=== PATIENT | male | born 1935 | race Caucasian/White ===

== ENCOUNTER 2016-11-05 19:11 | Emergency (ER) | payer OTHER, BC ==
[~2016-11-05] VITALS: Ht 182.9 cm; Wt 79.5 kg
[~2016-11-05 19:11] MED LIST: ASPIRIN81 M2 PO; ATORVASTATIN CA80 MG PO; CARDURA4 MG PO; CARVEDILOL12.5 MG PO; COUMADIN1 MG PO; FOSRENOL500 MG PO; LASIX80 MG PO; LISINOPRIL10 MG PO; PROSCAR5 MG PO; SENSIPAR30 MG PO; TAMSULOSIN HCL0.4 MG PO
[2016-11-05 19:42] LABS: MCH 33.2 PG (29.0-34.0); MCHC 32.6 G/DL (30.0-36.0); MEAN PLAT.VOLUME 10.5 uM^3 (9.0-12.4); PLATELET COUNT 171 K/uL (156-360); RBC DIS.WIDTH-CV 14.3 % (11.8-14.6); RBC DIS.WIDTH-SD 53.5 % (39-53); RED BLOOD COUNT 3.43 M/uL (4.00-5.50); WHITE BLOOD COUNT 6.5 K/uL (4.1-10.2)
[2016-11-05 19:52] LABS: CHLORIDE 102 mEq/L (99-109); POTASSIUM 5.1 mEq/L (3.7-5.4); SODIUM 144 mEq/L (136-147)
[2016-11-05 19:53] LABS: GLUCOSE 121 mg/dL (70-99)
[2016-11-05 19:55] LABS: ANION GAP 14 MEQ/L (2-14)
[2016-11-05 19:57] LABS: GFR ESTIMATE (CALCULATED) 7 mL/min/
[2016-11-05 19:58] LABS: UREA NITROGEN (BUN) 71 mg/dL (9-23)
[2016-11-05 20:04] LABS: TROP-I INTERPRETATION NEGATIVE; TROPONIN-I 0.13 ng/mL (0.0-0.30)
[2016-11-05 20:08] LABS: INTER. NORMALIZED RATIO 1.8; PROTHROMBIN TIME 20.7 SEC (10.2-12.9)
[2016-11-06] MEDS ORDERED: KEFLEX250 MG PO (00:34)
[2016-11-06] MEDS ORDERED: NORCO 5/3251 TABLET PO (00:34)
[2016-11-06 01:01] VITALS: BP 165/91
== END 2016-11-06 01:02 | disposition home or self-care (01) ==
LOC: EME 19:11
PROVIDERS: Physician Assistant
DX: S01.81XA Laceration without foreign body of other part of head, initial encounter (principal); S62.396A Other fracture of fifth metacarpal bone, right hand, initial encounter for closed fracture; S41.111A Laceration without foreign body of right upper arm, initial encounter; S80.211A Abrasion, right knee, initial encounter; S20.211A Contusion of right front wall of thorax, initial encounter; W10.2XXA Fall (on)(from) incline, initial encounter; I12.0 Hypertensive chronic kidney disease with stage 5 chronic kidney disease or end stage renal disease; N18.6 End stage renal disease; Z99.2 Dependence on renal dialysis; I48.91 Unspecified atrial fibrillation; Z79.01 Long term (current) use of anticoagulants; D64.9 Anemia, unspecified
CPT/HCPCS: 70450; 71020; 71250; 73080; 73090; 73130; 80048; 84484; 85027; 85610; 93005; 99281; 99284; J3010

== ENCOUNTER 2016-11-07 10:53 | Emergency (ER) | payer OTHER, BC ==
[~2016-11-07] VITALS: Ht 182.9 cm; Wt 77.8 kg
[~2016-11-07 10:53] MED LIST changes: +KEFLEX250 MG PO; +NORCO 5/3251 TABLET PO
[2016-11-07 11:49] VITALS: BP 150/87
== END 2016-11-07 11:55 | disposition home or self-care (01) ==
LOC: EME 10:53
DX: S50.811A Abrasion of right forearm, initial encounter (principal); S60.511A Abrasion of right hand, initial encounter; Z91.81 History of falling; I12.9 Hypertensive chronic kidney disease with stage 1 through stage 4 chronic kidney disease, or unspecified chronic kidney disease; N18.9 Chronic kidney disease, unspecified; Z99.2 Dependence on renal dialysis; Z79.01 Long term (current) use of anticoagulants
CPT/HCPCS: 99281; 99284

== ENCOUNTER 2016-11-09 11:05 | Emergency (ER) | payer OTHER, BC ==
[~2016-11-09] VITALS: Ht 182.9 cm; Wt 80.1 kg
[2016-11-09 12:43] VITALS: BP 130/71
== END 2016-11-09 12:44 | disposition home or self-care (01) ==
LOC: EME 11:05
DX: S41.111D Laceration without foreign body of right upper arm, subsequent encounter (principal); W19.XXXD Unspecified fall, subsequent encounter; Z48.00 Encounter for change or removal of nonsurgical wound dressing; Z79.01 Long term (current) use of anticoagulants; I12.0 Hypertensive chronic kidney disease with stage 5 chronic kidney disease or end stage renal disease; N18.6 End stage renal disease; Z99.2 Dependence on renal dialysis
CPT/HCPCS: 99281; 99284